=== PATIENT | female | born 1985 | race Caucasian/White ===

== ENCOUNTER 2021-10-10 16:58 | Emergency (ER) | payer OTHER, SELFPAY ==
[2021-10-10 17:04] VITALS: BP 149/94; PULSE 96; RESP 18; TEMP 36.9; O2SAT 97; BMI 30.1
[2021-10-10 18:30] LABS: MANUAL DIFF FLAG NO
[2021-10-10 18:31] LABS: Basophils Percent Auto 0.5 % (0-2); Eosinophils Absolute Auto 0.1 X10*3/uL (0.0-0.4); Eosinophils Percent Auto 1.3 % (0-4); Hematocrit 37.9 % (37.0-47.0); Hemoglobin 13.2 g/dl (12.0-16.0); Imm Gran Abs Auto 0.01 X10*3/uL (0.00-0.03); Imm Gran Pct Auto 0.2 % (0.0-0.4); Lymphocytes Absolute Auto 1.2 X10*3/uL (1.2-4.9); Lymphocytes Percent Auto 20.9 % (20-40); Mean Corpuscular HGB Conc 34.8 g/dl (31.0-35.0); Mean Corpuscular Hemoglobin 30.3 pg (27.0-33.0); Mean Corpuscular Volume 86.9 fL (80.0-98.0); Mean Platelet Volume 9.6 fL (9.4-12.3); Monocytes Absolute Auto 0.3 X10*3/uL (0.1-1.2); Neutrophils Absolute Auto 3.9 x10*3/uL (2.0-8.3); Neutrophils Percent Auto 71.1 % (45-73); Platelet Count 340 X10*3/uL (160-400); Red Blood Count 4.36 X10*6/uL (4.20-5.50); Red Cell Distribution Width 11.9 % (11.0-16.0); White Blood Count 5.5 X10*3/uL (4.8-10.8)
[2021-10-10 18:46] LABS: Anion Gap 15 (12-20); Blood Urea Nitrogen 12 mg/dL (9-16); Calcium 9.6 mg/dL (8.4-10.2); Carbon Dioxide 27 mmol/L (22-29); Chloride 103 mmol/L (96-108); Creatinine Clr Calc Pharmacy 78.7; Estimated Glomerular Filt Rate > 60; Glucose Random 101 mg/dL (60-115); Potassium 4.2 mmol/L (3.3-5.1); Sodium 141 mmol/L (135-145)
== END 2021-10-10 20:06 | disposition left against medical advice (07) ==
PROVIDERS: Emergency Provider Emergency Medicine
DX: K92.1 Melena (principal); K59.00 Constipation, unspecified; Z79.899 Other long term (current) drug therapy
CPT/HCPCS: 36415; 80048; 85025; 99281; 99283

== ENCOUNTER 2022-03-17 12:20 | Emergency (ER) | payer OTHER, SELFPAY ==
--- NOTE | ~2022-03-17 | US_ITS ---
EXAMINATION: US ABDOMEN COMPLETE CLINICAL INFORMATION: Epigastric pain, right flank pain. COMPARISON: None TECHNIQUE: Real-time imaging of the abdominal viscera. FINDINGS: PANCREAS: Normal. ABDOMINAL AORTA: The proximal, mid, and distal segments are normal in caliber. INFERIOR VENA CAVA: Visualized portions are normal. LIVER: Normal. The liver is normal in size. The liver contour is normal. Parenchymal echogenicity is normal. No focal hepatic lesion. There is no intrahepatic biliary duct dilatation seen. GALLBLADDER: Normal. The gallbladder is physiologically distended without evidence of stones, sludge, polyps, wall thickening or pericholecystic fluid. COMMON BILE DUCT: Normal in caliber measuring 0.6 cm in diameter. RIGHT KIDNEY: Normal. No hydronephrosis. No renal calculi or focal parenchymal lesions. The kidney measures 8.2 cm in maximum dimension. LEFT KIDNEY: Normal. No hydronephrosis. No renal calculi or focal parenchymal lesions. The kidney measures 44 cm in maximum dimension. SPLEEN: Normal. The spleen measures 10.0 cm in maximum dimension. FREE FLUID: None. US/US abdomen complete IMPRESSION: Unremarkable abdominal ultrasound.
--- NOTE | ~2022-03-17 | CT_ITS ---
EXAMINATION: CT ABDOMEN AND PELVIS WITH CONTRAST CLINICAL INFORMATION: Lower abdominal pain COMPARISON: Abdominal ultrasound from the same day TECHNIQUE: Multidetector volumetric images were obtained from the superior aspect of the liver through the pubic symphysis following administration 85 mL of Omnipaque 350 intravenous contrast. Sagittal and coronal reformatted images were obtained on the technologist's workstation. Oral contrast: No This CT examination was performed using dose optimization techniques as appropriate, variously including the following: *Automated exposure control *Adjustment of mA and/or kV according to patient size (this includes techniques or standardized protocols for targeted exams where dose is matched to indication/reason for exam; i.e. extremities or head) *Use of iterative reconstruction technique DLP: 644 mGy-cm FINDINGS: LUNG BASES: The visualized lung bases are unremarkable. LIVER, GALLBLADDER, AND BILIARY TREE: The liver is normal in size, shape, and attenuation. No focal hepatic lesion or biliary ductal dilatation is present. The gallbladder is unremarkable with no evidence of radiopaque gallstones, gallbladder wall thickening, or obvious pericholecystic inflammatory changes. PANCREAS: Unremarkable. SPLEEN: Unremarkable. ADRENAL GLANDS: Unremarkable. KIDNEYS AND URETERS: There is simple cyst in the upper pole of right kidney measured 1.7 x 2.2 x 1.6 cm BLADDER: Unremarkable. GASTROINTESTINAL TRACT: The small and large bowel are unremarkable. The appendix is unremarkable. Large amount of retained feces consistent with constipation. ABDOMINAL WALL: No significant hernia is appreciated. LYMPH NODES: Normal. VASCULAR: Unremarkable. PELVIC VISCERA: Unremarkable. OSSEOUS STRUCTURES: Unremarkable. CT/CT abdomen pelvis w IV con IMPRESSION: Constipation. Simple cyst in the right kidney. Fleischner guidelines were followed.
--- NOTE | 2022-03-17 12:44 | ED.ABDPAIN ---
HPI - Abdominal Pain General Chief Complaint: Nausea/Vomiting/Diarrhea <JEREMIE Shankar Last Filed: 03/17/22 12:49> Stated Complaint: vomiting, cant keep anything down. <JEREMIE Shankar Last Filed: 03/17/22 12:49> Time Seen by Provider: 03/17/22 15:31 <JEREMIE Shankar Last Filed: 03/17/22 12:49> Source: patient <JEREMIE Pollard Last Filed: 03/17/22 17:29> Mode of arrival: ambulatory <JEREMIE Pollard Last Filed: 03/17/22 17:29> Limitations: no limitations <JEREMIE Pollard Last Filed: 03/17/22 17:29> History of Present Illness HPI narrative: 36 year old female presents to the ED with nausea and vomiting that started yesterday at 7 pm. The patient is unable to tolerate PO since last night. Epigastric pain induced by vomiting. No Hematochezia. Denies changes to bowel movements, noted normal bowel movement this morning. Reports sweats and chills during vomiting. Today she noticed right sided flank pain, described as constant dull 3 out of 10 pain. States she was unable to sleep last night and is extremely tiered. She also reports having a tension headache, 7 out of 10 pain. Denies dysuria, hematuria, urgency and frequency. Just ended her menses. No recent travel or sick contacts. <JEREMIE Pollard Last Filed: 03/17/22 17:29> MD elicited complaint: flank pain (right ) <JEREMIE Pollard Last Filed: 03/17/22 17:29> Onset (ago): hour(s) <JEREMIE Pollard Last Filed: 03/17/22 17:29> Pain Consistency: constant <JEREMIE Pollard Last Filed: 03/17/22 17:29> Location: epigastric and R flank <JEREMIE Pollard Last Filed: 03/17/22 17:29> Severity: mild <JEREMIE Pollard Last Filed: 03/17/22 17:29> Pain scale (0-10): 4 <JEREMIE Pollard Last Filed: 03/17/22 17:29> Quality: dull <JEREMIE Pollard Last Filed: 03/17/22 17:29> Radiation: none <JEREMIE Pollard Last Filed: 03/17/22 17:29> Migration to: no migration <JEREMIE Pollard Last Filed: 03/17/22 17:29> Exacerbating factors: vomiting <JEREMIE Pollard Last Filed: 03/17/22 17:29> Associated symptoms: nausea and vomiting <JEREMIE Pollard Last Filed: 03/17/22 17:29> Related Data Home Medications: Previous Rx's Medication Instructions Recorded docusate sodium 100 mg capsule 100 mg PO BID PRN Constipation #14 03/17/22 (Colace) caps ketorolac 10 mg tablet 10 mg PO Q8H #14 tabs 03/17/22 ondansetron HCl 4 mg tablet 4 mg PO Q8H #14 tabs 03/17/22 polyethylene glycol 3350 17 17 g PO DAILY Constipation #119 03/17/22 gram/dose oral powder (Miralax) grams <JEREMIE Shankar Last Filed: 03/17/22 12:49> Allergies/Adverse Reactions: Allergies Allergy/AdvReac Type Severity Reaction Status Date / Time No Known Allergies Allergy Unverified 10/28/19 18:24 <JEREMIE Shankar Last Filed: 03/17/22 12:49> Review of Systems Review of Systems Constitutional : No Fever, + Chills with vomiting, + Sweats with vomiting, No Fatigue, No Malaise Cardiovascular : No Chest Pain, No SOB Respiratory : No Cough, No Sputum, No Wheezing, No Dyspnea Gastrointestinal : + Nausea, + Vomiting, No Diarrhea, No abdominal Pain, No Hematochezia, No Melena Genitourinary : No irregular bleeding, No Dysuria, No Urinary Frequency, No Hematuria,No Urinary Incontinence, No Urgency, No Flank Pain Musculoskeletal : No joint pain, No Myalgias, No Joint Swelling Skin : No Skin Lesions, No rash Neuro : No Weakness, No Numbness, No Paresthesias, No Loss of Consciousness, No Dizziness, No Headache Heme/Lymph: No Lymphadenopathy Endocrine : No Temperature Intolerance <JEREMIE Pollard Last Filed: 03/17/22 17:29> Yes all other systems are reviewed and are negative <JEREMIE Pollard - Last Filed: 03/17/22 17:29> FORMERLY [facility] Past Medical History Attestation statement: The following information was validated with the patient. <JEREMIE Pollard - Last Filed: 03/17/22 17:29> Source: old records reviewed and nursing notes reviewed <JEREMIE Pollard - Last Filed: 03/17/22 17:29> Social History Social History: Social History Advance Directives: No Advance Directives Information Provided: No <JEREMIE Shankar - Last Filed: 03/17/22 12:49> Physical Exam ED Vital Signs: Vital Signs - 24 hr 03/17/22 12:45 03/17/22 15:05 03/17/22 17:01 Temperature 98 F 98.7 F 98.6 F Pulse Rate 96 94 80 Respiratory Rate 16 16 19 Blood Pressure 119/78 116/75 96/57 L Pulse Oximetry 97 98 100 Oxygen Delivery Method Room Air Room Air Room Air BMI result Body Mass Index 30.9 <JEREMIE Shankar - Last Filed: 03/17/22 12:49> Vital Signs - 24 hr 03/17/22 12:45 03/17/22 15:05 03/17/22 17:01 Temperature 98 F 98.7 F 98.6 F Pulse Rate 96 94 80 Respiratory Rate 16 16 19 Blood Pressure 119/78 116/75 96/57 L Pulse Oximetry 97 98 100 Oxygen Delivery Method Room Air Room Air Room Air BMI result Body Mass Index 30.9 Vital signs have been reviewed and all within normal limits <JEREMIE Pollard - Last Filed: 03/17/22 17:29> Appearance: Alert. Oriented X3. No acute distress. Head: Normal external exam. Normocephalic. Eyes: PERRLA. EOMI. Conjunctiva and sclera normal. Eyelids normal. ENT: Pharynx normal. Uvula midline. Dry mucous membranes. No trismus noted. No drooling noted. No muffled voice noted. Neck: Normal inspection. Neck supple. FROM. No adenopathy. No meningeal signs. CVS: Normal heart rate and rhythm. Heart sound normal. No murmurs noted. Pulses normal throughout. Respiratory: No respiratory distress. Painless inspiration. Breath sounds normal. No wheezes/rales/rhonchi noted. Chest nontender. No accessory muscle usage noted or decreased air movement noted. Abdomen: Soft and nontender. Nondistended. No guarding. No rigidity. Bowel sounds normal in all 4 quadrants. No distention noted. No organomegaly noted. No visible injury noted. No rebound tenderness. Negative Rovsing sign. Negative obturator's sign. Negative psoas sign. Negative Shaffer sign. Back: + CVA tenderness right sided. Full range of motion noted. Skin: Skin warm and dry. Normal skin color. Normal skin turgor. No rashes/lesions/lacerations noted. Extremities: Extremities exhibit normal range of motion. Extremities nontender. Neuro: Oriented X 3. No motor deficit. No sensory deficit. Reflexes normal. Normal steady gait. CN's II-XII intact bilaterally? <JEREMIE Pollard - Last Filed: 03/17/22 17:29> Course Course Course Narrative: RME--36yo F c/o nausea, vomiting, and inability to tolerate PO since last night with assoc epigastric and R flank pain. Denies fever, chills Just ended last menses. R CVAT noted on exam, abdomen soft and nontender Labs, UA, IVF, Abd US complete, & ordered in triage <JEREMIE Shankar - Last Filed: 03/17/22 12:49> 36 year old female presents to the ED with nausea and vomiting that started yesterday at 7 pm. The patient is unable to tolerate PO since last night. Epigastric pain induced by vomiting. No Hematochezia. Denies changes to bowel movements, noted normal bowel movement this morning. Reports sweats and chills during vomiting. Today she noticed right sided flank pain, described as constant dull 3 out of 10 pain. States she was unable to sleep last night and is extremely tiered. She also reports having a tension headache, 7 out of 10 pain. Denies dysuria, hematuria, urgency and frequency. Just ended her menses. No recent travel or sick contacts. The patient is a 36 year old afebrile female with nausea and vomiting since yesterday evening unable to tolerate PO. The pt reports 3 out of 10 dull non-radiating right side flank pain and epigastric pain induced by vomiting. Physical exam remarkable for right sided CVA tenderness. Abdominal exam was unremarkable the abdomen is Soft and nontender. Nondistended. No guarding. No rigidity. Bowel sounds normal in all 4 quadrants. No distention noted. No organomegaly noted. No visible injury noted. No rebound tenderness. Negative Rovsing sign. Negative obturator's sign. Negative psoas sign. Negative Shaffer sign. Plan: Labs IVF Imaging Test <JEREMIE Pollard - Last Filed: 03/17/22 17:29> Reevaluation(s) Reevaluation #1: CBC: Neut% 86.8, Lymph% 6.3, Absolute Neuts 8.9 - all other lab values within normal limits BMP: Alk phos 38 - all other lab values within normal limits UA: Ur Specific [place] >=1.030, Urine Protein 30 (1+), Trace blood in urine, Urine RBC 6-10 Urine - Negative <JEREMIE Pollard - Last Filed: 03/17/22 17:29> Time: 15:19 <JEREMIE Pollard - Last Filed: 03/17/22 17:29> Reevaluation #2: Abdomen Ultrasound: FINDINGS: PANCREAS: Normal. ABDOMINAL AORTA: The proximal, mid, and distal segments are normal in caliber. INFERIOR VENA CAVA: Visualized portions are normal. LIVER: Normal. The liver is normal in size. The liver contour is normal. Parenchymal echogenicity is normal. No focal hepatic lesion. There is no intrahepatic biliary duct dilatation seen. GALLBLADDER: Normal. The gallbladder is physiologically distended without evidence of stones, sludge, polyps, wall thickening or pericholecystic fluid. COMMON BILE DUCT: Normal in caliber measuring 0.6 cm in diameter. RIGHT KIDNEY: Normal. No hydronephrosis. No renal calculi or focal parenchymal lesions. The kidney measures 8.2 cm in maximum dimension. LEFT KIDNEY: Normal. No hydronephrosis. No renal calculi or focal parenchymal lesions. The kidney measures 44 cm in maximum dimension. SPLEEN: Normal. The spleen measures 10.0 cm in maximum dimension. FREE FLUID: None. US/US abdomen complete IMPRESSION: Unremarkable abdominal ultrasound. ? <JEREMIE Pollard - Last Filed: 03/17/22 17:29> Time: 14:30 <JEREMIE Pollard - Last Filed: 03/17/22 17:29> Reevaluation #3: Abdomen/Pelvis CT: Revealed constipation in a simple cyst in the right kidney otherwise no other acute processes. Patient now tolerating p.o. fluids and solids. Therefore at this time patient will be discharged with nausea medication for possible gastroenteritis and Colace and MiraLax for constipation instructions return if any new or worsening symptoms to follow up with primary care provider. Patient understands agrees with this plan. <JEREMIE Pollard - Last Filed: 03/17/22 17:29> Time: 17:22 <JEREMIE Pollard - Last Filed: 03/17/22 17:29> Medical Decision Making Lab Data MDM Lab Attestation statement: I reviewed the patient's lab results. <JEREMIE Pollard - Last Filed: 03/17/22 17:29> Result Diagrams: 03/17/22 15:19 03/17/22 15:19 <JEREMIE Shankar - Last Filed: 03/17/22 12:49> Labs: Lab Results 03/17/22 03/17/22 03/17/22 Range/Units 15:19 15:19 15:19 WBC 10.3 (4.8-10.8) X10*3/uL RBC 4.31 (4.20-5.50) X10*6/uL Hgb 12.9 (12.0-16.0) g/dl Hct 37.3 (37.0-47.0) % MCV 86.5 (80.0-98.0) fL MCH 29.9 (27.0-33.0) pg MCHC 34.6 (31.0-35.0) g/dl RDW 11.9 (11.0-16.0) % Plt Count 287 (160-400) X10*3/uL MPV 10.3 (9.4-12.3) fL Immature Gran % (Auto) 0.3 (0.0-0.4) % Neut % (Auto) 86.8 H (45-73) % Lymph % (Auto) 6.3 L (20-40) % [place] % (Auto) 6.3 (2-11) % Eos % (Auto) 0.0 (0-4) % Baso % (Auto) 0.3 (0-2) % Lymph # (Auto) 0.7 L (1.2-4.9) X10*3/uL [place] # (Auto) 0.7 (0.1-1.2) X10*3/uL Eos # (Auto) 0.0 (0.0-0.4) X10*3/uL Baso # (Auto) 0.0 (0.0-0.2) X10*3/uL Abs Immat Gran (auto) 0.03 (0.00-0.03) X10*3/uL Absolute Neuts (auto) 8.9 H (2.0-8.3) x10*3/uL Absolute Nucleated RBC 0.000 (0.0-0.012) X10*3/uL Nucleated RBC % (auto) 0.0 (0.0-0.2) /100WBC Sodium 138 (135-145) mmol/L Potassium 4.6 (3.3-5.1) mmol/L Chloride 101 (96-108) mmol/L Carbon Dioxide 27 (22-29) mmol/L Anion Gap 15 (12-20) BUN 15 (9-16) mg/dL Creatinine 0.85 (0.5-1.4) mg/dL Estim Creat Clear Calc 91.2 Estimated GFR > 60 Random Glucose 104 (60-115) mg/dL Calcium 9.4 (8.4-10.2) mg/dL Magnesium 1.9 (1.6-2.6) mg/dL Total Bilirubin 0.7 (0.0-1.0) mg/dL Direct Bilirubin 0.2 (0.0-0.5) mg/dL AST 21 (5-31) U/L ALT 17 (0-31) U/L Alkaline Phosphatase 38 L (39-117) U/L Total Protein 7.1 (6.5-8.0) g/dL Albumin 4.1 (3.5-5.0) g/dL Lipase 9 (8-78) U/L Urine Color Yellow Urine Appearance Clear Urine pH 5.5 (5.0-9.0) Ur Specific [place] >= 1.030 H (1.005-1.025) Urine Protein 30 (1+) H (Neg-Trace) mg/dL Urine Glucose (UA) Negative (Negative) mg/dL Urine Ketones Negative (Negative) mg/dL Urine Blood Trace H (Negative) Urine Nitrite Negative (Negative) Ur Leukocyte Esterase Negative (Negative) Urine RBC 6-10 H (0-2) /HPF Urine WBC 0-5 (0-5) /HPF Ur Squamous Epith Cells 11-20 (0-2) /HPF Urine Bacteria 1+ (None Seen) Hyaline Casts 0-2 (0-2) /LPF Urine Test (NEGATIVE) Influenza Type A (PCR) (Negative) Influenza Type B (PCR) (Negative) RSV RNA Qual (PCR) (Negative) SARS-CoV-2 RNA (RT-PCR) (Negative) 03/17/22 03/17/22 Range/Units 15:19 16:21 WBC (4.8-10.8) X10*3/uL RBC (4.20-5.50) X10*6/uL Hgb (12.0-16.0) g/dl Hct (37.0-47.0) % MCV (80.0-98.0) fL MCH (27.0-33.0) pg MCHC (31.0-35.0) g/dl RDW (11.0-16.0) % Plt Count (160-400) X10*3/uL MPV (9.4-12.3) fL Immature Gran % (Auto) (0.0-0.4) % Neut % (Auto) (45-73) % Lymph % (Auto) (20-40) % [place] % (Auto) (2-11) % Eos % (Auto) (0-4) % Baso % (Auto) (0-2) % Lymph # (Auto) (1.2-4.9) X10*3/uL [place] # (Auto) (0.1-1.2) X10*3/uL Eos # (Auto) (0.0-0.4) X10*3/uL Baso # (Auto) (0.0-0.2) X10*3/uL Abs Immat Gran (auto) (0.00-0.03) X10*3/uL Absolute Neuts (auto) (2.0-8.3) x10*3/uL Absolute Nucleated RBC (0.0-0.012) X10*3/uL Nucleated RBC % (auto) (0.0-0.2) /100WBC Sodium (135-145) mmol/L Potassium (3.3-5.1) mmol/L Chloride (96-108) mmol/L Carbon Dioxide (22-29) mmol/L Anion Gap (12-20) BUN (9-16) mg/dL Creatinine (0.5-1.4) mg/dL Estim Creat Clear Calc Estimated GFR Random Glucose (60-115) mg/dL Calcium (8.4-10.2) mg/dL Magnesium (1.6-2.6) mg/dL Total Bilirubin (0.0-1.0) mg/dL Direct Bilirubin (0.0-0.5) mg/dL AST (5-31) U/L ALT (0-31) U/L Alkaline Phosphatase (39-117) U/L Total Protein (6.5-8.0) g/dL Albumin (3.5-5.0) g/dL Lipase (8-78) U/L Urine Color Urine Appearance Urine pH (5.0-9.0) Ur Specific [place] (1.005-1.025) Urine Protein (Neg-Trace) mg/dL Urine Glucose (UA) (Negative) mg/dL Urine Ketones (Negative) mg/dL Urine Blood (Negative) Urine Nitrite (Negative) Ur Leukocyte Esterase (Negative) Urine RBC (0-2) /HPF Urine WBC (0-5) /HPF Ur Squamous Epith Cells (0-2) /HPF Urine Bacteria (None Seen) Hyaline Casts (0-2) /LPF Urine Test NEGATIVE (NEGATIVE) Influenza Type A (PCR) NEGATIVE (Negative) Influenza Type B (PCR) NEGATIVE (Negative) RSV RNA Qual (PCR) NEGATIVE (Negative) SARS-CoV-2 RNA (RT-PCR) NEGATIVE (Negative) <JEREMIE Shankar - Last Filed: 03/17/22 12:49> Lab Results 03/17/22 03/17/22 03/17/22 Range/Units 15:19 15:19 15:19 WBC 10.3 (4.8-10.8) X10*3/uL RBC 4.31 (4.20-5.50) X10*6/uL Hgb 12.9 (12.0-16.0) g/dl Hct 37.3 (37.0-47.0) % MCV 86.5 (80.0-98.0) fL MCH 29.9 (27.0-33.0) pg MCHC 34.6 (31.0-35.0) g/dl RDW 11.9 (11.0-16.0) % Plt Count 287 (160-400) X10*3/uL MPV 10.3 (9.4-12.3) fL Immature Gran % (Auto) 0.3 (0.0-0.4) % Neut % (Auto) 86.8 H (45-73) % Lymph % (Auto) 6.3 L (20-40) % [place] % (Auto) 6.3 (2-11) % Eos % (Auto) 0.0 (0-4) % Baso % (Auto) 0.3 (0-2) % Lymph # (Auto) 0.7 L (1.2-4.9) X10*3/uL [place] # (Auto) 0.7 (0.1-1.2) X10*3/uL Eos # (Auto) 0.0 (0.0-0.4) X10*3/uL Baso # (Auto) 0.0 (0.0-0.2) X10*3/uL Abs Immat Gran (auto) 0.03 (0.00-0.03) X10*3/uL Absolute Neuts (auto) 8.9 H (2.0-8.3) x10*3/uL Absolute Nucleated RBC 0.000 (0.0-0.012) X10*3/uL Nucleated RBC % (auto) 0.0 (0.0-0.2) /100WBC Sodium 138 (135-145) mmol/L Potassium 4.6 (3.3-5.1) mmol/L Chloride 101 (96-108) mmol/L Carbon Dioxide 27 (22-29) mmol/L Anion Gap 15 (12-20) BUN 15 (9-16) mg/dL Creatinine 0.85 (0.5-1.4) mg/dL Estim Creat Clear Calc 91.2 Estimated GFR > 60 Random Glucose 104 (60-115) mg/dL Calcium 9.4 (8.4-10.2) mg/dL Magnesium 1.9 (1.6-2.6) mg/dL Total Bilirubin 0.7 (0.0-1.0) mg/dL Direct Bilirubin 0.2 (0.0-0.5) mg/dL AST 21 (5-31) U/L ALT 17 (0-31) U/L Alkaline Phosphatase 38 L (39-117) U/L Total Protein 7.1 (6.5-8.0) g/dL Albumin 4.1 (3.5-5.0) g/dL Lipase 9 (8-78) U/L Urine Color Yellow Urine Appearance Clear Urine pH 5.5 (5.0-9.0) Ur Specific [place] >= 1.030 H (1.005-1.025) Urine Protein 30 (1+) H (Neg-Trace) mg/dL Urine Glucose (UA) Negative (Negative) mg/dL Urine Ketones Negative (Negative) mg/dL Urine Blood Trace H (Negative) Urine Nitrite Negative (Negative) Ur Leukocyte Esterase Negative (Negative) Urine RBC 6-10 H (0-2) /HPF Urine WBC 0-5 (0-5) /HPF Ur Squamous Epith Cells 11-20 (0-2) /HPF Urine Bacteria 1+ (None Seen) Hyaline Casts 0-2 (0-2) /LPF Urine Test (NEGATIVE) Influenza Type A (PCR) (Negative) Influenza Type B (PCR) (Negative) RSV RNA Qual (PCR) (Negative) SARS-CoV-2 RNA (RT-PCR) (Negative) 03/17/22 03/17/22 Range/Units 15:19 16:21 WBC (4.8-10.8) X10*3/uL RBC (4.20-5.50) X10*6/uL Hgb (12.0-16.0) g/dl Hct (37.0-47.0) % MCV (80.0-98.0) fL MCH (27.0-33.0) pg MCHC (31.0-35.0) g/dl RDW (11.0-16.0) % Plt Count (160-400) X10*3/uL MPV (9.4-12.3) fL Immature Gran % (Auto) (0.0-0.4) % Neut % (Auto) (45-73) % Lymph % (Auto) (20-40) % [place] % (Auto) (2-11) % Eos % (Auto) (0-4) % Baso % (Auto) (0-2) % Lymph # (Auto) (1.2-4.9) X10*3/uL [place] # (Auto) (0.1-1.2) X10*3/uL Eos # (Auto) (0.0-0.4) X10*3/uL Baso # (Auto) (0.0-0.2) X10*3/uL Abs Immat Gran (auto) (0.00-0.03) X10*3/uL Absolute Neuts (auto) (2.0-8.3) x10*3/uL Absolute Nucleated RBC (0.0-0.012) X10*3/uL Nucleated RBC % (auto) (0.0-0.2) /100WBC Sodium (135-145) mmol/L Potassium (3.3-5.1) mmol/L Chloride (96-108) mmol/L Carbon Dioxide (22-29) mmol/L Anion Gap (12-20) BUN (9-16) mg/dL Creatinine (0.5-1.4) mg/dL Estim Creat Clear Calc Estimated GFR Random Glucose (60-115) mg/dL Calcium (8.4-10.2) mg/dL Magnesium (1.6-2.6) mg/dL Total Bilirubin (0.0-1.0) mg/dL Direct Bilirubin (0.0-0.5) mg/dL AST (5-31) U/L ALT (0-31) U/L Alkaline Phosphatase (39-117) U/L Total Protein (6.5-8.0) g/dL Albumin (3.5-5.0) g/dL Lipase (8-78) U/L Urine Color Urine Appearance Urine pH (5.0-9.0) Ur Specific [place] (1.005-1.025) Urine Protein (Neg-Trace) mg/dL Urine Glucose (UA) (Negative) mg/dL Urine Ketones (Negative) mg/dL Urine Blood (Negative) Urine Nitrite (Negative) Ur Leukocyte Esterase (Negative) Urine RBC (0-2) /HPF Urine WBC (0-5) /HPF Ur Squamous Epith Cells (0-2) /HPF Urine Bacteria (None Seen) Hyaline Casts (0-2) /LPF Urine Test NEGATIVE (NEGATIVE) Influenza Type A (PCR) NEGATIVE (Negative) Influenza Type B (PCR) NEGATIVE (Negative) RSV RNA Qual (PCR) NEGATIVE (Negative) SARS-CoV-2 RNA (RT-PCR) NEGATIVE (Negative) <JEREMIE Pollard - Last Filed: 03/17/22 17:29> Independent Interpretation I performed an independent interpretation of an: Ultrasound and CT Scan <JEREMIE Pollard - Last Filed: 03/17/22 17:29> Radiology Impression Discussion of test interpretation with radiology: I have reviewed the radiologist's reading. <JEREMIE Pollard - Last Filed: 03/17/22 17:29> Radiologist Impression: FINDINGS: PANCREAS: Normal. ABDOMINAL AORTA: The proximal, mid, and distal segments are normal in caliber. INFERIOR VENA CAVA: Visualized portions are normal. LIVER: Normal. The liver is normal in size. The liver contour is normal. Parenchymal echogenicity is normal. No focal hepatic lesion. There is no intrahepatic biliary duct dilatation seen. GALLBLADDER: Normal. The gallbladder is physiologically distended without evidence of stones, sludge, polyps, wall thickening or pericholecystic fluid. COMMON BILE DUCT: Normal in caliber measuring 0.6 cm in diameter. RIGHT KIDNEY: Normal. No hydronephrosis. No renal calculi or focal parenchymal lesions. The kidney measures 8.2 cm in maximum dimension. LEFT KIDNEY: Normal. No hydronephrosis. No renal calculi or focal parenchymal lesions. The kidney measures 44 cm in maximum dimension. SPLEEN: Normal. The spleen measures 10.0 cm in maximum dimension. FREE FLUID: None. US/US abdomen complete IMPRESSION: Unremarkable abdominal ultrasound. ? FINDINGS: LUNG BASES: The visualized lung bases are unremarkable.? LIVER, GALLBLADDER, AND BILIARY TREE: The liver is normal in size, shape, and attenuation. No focal hepatic lesion or biliary ductal dilatation is present. The gallbladder is unremarkable with no evidence of radiopaque gallstones, gallbladder wall thickening, or obvious pericholecystic inflammatory changes.? PANCREAS: Unremarkable.? SPLEEN: Unremarkable.? ADRENAL GLANDS: Unremarkable.? KIDNEYS AND URETERS: There is simple cyst in the upper pole of right kidney measured 1.7 x 2.2 x 1.6 cm? BLADDER: Unremarkable.? GASTROINTESTINAL TRACT: The small and large bowel are unremarkable. The appendix is unremarkable. Large amount of retained feces consistent with constipation. ABDOMINAL WALL: No significant hernia is appreciated.? LYMPH NODES: Normal. VASCULAR: Unremarkable. PELVIC VISCERA: Unremarkable.? OSSEOUS STRUCTURES: Unremarkable.? CT/CT abdomen pelvis w IV con IMPRESSION: Constipation. Simple cyst in the right kidney. ? Fleischner guidelines were followed. <JEREMIE Pollard - Last Filed: 03/17/22 17:29> Prescription Management I considered prescription management with: Pain Medication <JEREMIE Pollard - Last Filed: 03/17/22 17:29> Medications Administered Generic Name Dose Route Start Last Admin Trade Name Freq PRN Reason Stop Dose Admin Sodium Chloride 1,000 mls @ 999 mls/hr 03/17/22 17:15 03/17/22 17:18 Ns IVCONT 03/17/22 18:15 999 mls/hr .Q1H1M NELSON Administration Discontinued Medications Generic Name Dose Route Start Last Admin Trade Name Freq PRN Reason Stop Dose Admin Acetaminophen 975 mg 03/17/22 16:34 03/17/22 17:07 Acetaminophen 325 Mg Tablet PO 03/17/22 16:35 975 mg ONCE ONE Administration Sodium Chloride 1,000 mls @ 999 mls/hr 03/17/22 12:45 03/17/22 17:08 Ns IV 03/17/22 13:45 Infused .Q1H1M NELSON Infusion Iohexol 100 ml 03/17/22 16:05 03/17/22 16:06 Iohexol 350 Mg/Ml 100 Ml Infus..Btl IV 03/17/22 16:06 85 ml ONCE ONE Administration Ketorolac Tromethamine 30 mg 03/17/22 15:52 03/17/22 16:29 Ketorolac Tromethamine 30 Mg/Ml Vial IVPUSH 03/17/22 15:53 30 mg ONCE ONE Administration Ondansetron HCl 4 mg 03/17/22 15:52 03/17/22 16:29 Ondansetron Hcl 4 Mg/2 Ml Vial IVPUSH 03/17/22 15:53 4 mg ONCE ONE Administration <JEREMIE Shankar - Last Filed: 03/17/22 12:49> Medications Administered Generic Name Dose Route Start Last Admin Trade Name Freq PRN Reason Stop Dose Admin Sodium Chloride 1,000 mls @ 999 mls/hr 03/17/22 17:15 03/17/22 17:18 Ns IVCONT 03/17/22 18:15 999 mls/hr .Q1H1M NELSON Administration Discontinued Medications Generic Name Dose Route Start Last Admin Trade Name Freq PRN Reason Stop Dose Admin Acetaminophen 975 mg 03/17/22 16:34 03/17/22 17:07 Acetaminophen 325 Mg Tablet PO 03/17/22 16:35 975 mg ONCE ONE Administration Sodium Chloride 1,000 mls @ 999 mls/hr 03/17/22 12:45 03/17/22 17:08 Ns IV 03/17/22 13:45 Infused .Q1H1M NELSON Infusion Iohexol 100 ml 03/17/22 16:05 03/17/22 16:06 Iohexol 350 Mg/Ml 100 Ml Infus..Btl IV 03/17/22 16:06 85 ml ONCE ONE Administration Ketorolac Tromethamine 30 mg 03/17/22 15:52 03/17/22 16:29 Ketorolac Tromethamine 30 Mg/Ml Vial IVPUSH 03/17/22 15:53 30 mg ONCE ONE Administration Ondansetron HCl 4 mg 03/17/22 15:52 03/17/22 16:29 Ondansetron Hcl 4 Mg/2 Ml Vial IVPUSH 03/17/22 15:53 4 mg ONCE ONE Administration <JEREMIE Pollard - Last Filed: 03/17/22 17:29> Discharge Plan Discharge Clinical Impression: Gastroenteritis, Constipation, Cyst of right kidney <JEREMIE Shankar - Last Filed: 03/17/22 12:49> Patient Disposition: Home, Self-Care <JEREMIE Shankar - Last Filed: 03/17/22 12:49> Instructions: Constipation (ED), Gastroenteritis (ED), Kidney Cyst (ED) <JEREMIE Shankar - Last Filed: 03/17/22 12:49> Prescriptions: New ondansetron HCl 4 mg tablet 4 mg PO Q8H Qty: 14 0RF ketorolac 10 mg tablet 10 mg PO Q8H Qty: 14 0RF Rx Instructions: First dose given in the ER by IV patient tolerated well docusate sodium [Colace] 100 mg capsule 100 mg PO BID PRN (Reason: Constipation) Qty: 14 0RF polyethylene glycol 3350 [Miralax] 17 gram/dose powder 17 g PO DAILY Qty: 119 0RF <JEREMIE Shankar - Last Filed: 03/17/22 12:49> Referrals: Fabien Madrid MD [Primary Care Provider] - 2 days <JEERMIE Shankar - Last Filed: 03/17/22 12:49> Stand Alone Forms: Work/School Release <JEREMIE Shankar - Last Filed: 03/17/22 12:49>
[2022-03-17 12:45] VITALS: BP 119/78; PULSE 96; RESP 16; TEMP 36.6; O2SAT 97; BMI 30.9
[2022-03-17 15:05] VITALS: BP 116/75; PULSE 94; RESP 16; TEMP 37.1; O2SAT 98
[2022-03-17 15:25] LABS: MANUAL DIFF FLAG NO
[2022-03-17 15:26] LABS: Basophils Percent Auto 0.3 % (0-2); Hematocrit 37.3 % (37.0-47.0); Hemoglobin 12.9 g/dl (12.0-16.0); Imm Gran Abs Auto 0.03 X10*3/uL (0.00-0.03); Imm Gran Pct Auto 0.3 % (0.0-0.4); Lymphocytes Absolute Auto 0.7 X10*3/uL (1.2-4.9); Lymphocytes Percent Auto 6.3 % (20-40); Mean Corpuscular HGB Conc 34.6 g/dl (31.0-35.0); Mean Corpuscular Hemoglobin 29.9 pg (27.0-33.0); Mean Corpuscular Volume 86.5 fL (80.0-98.0); Mean Platelet Volume 10.3 fL (9.4-12.3); Monocytes Absolute Auto 0.7 X10*3/uL (0.1-1.2); Monocytes Percent Auto 6.3 % (2-11); Neutrophils Absolute Auto 8.9 x10*3/uL (2.0-8.3); Neutrophils Percent Auto 86.8 % (45-73); Platelet Count 287 X10*3/uL (160-400); Red Blood Count 4.31 X10*6/uL (4.20-5.50); Red Cell Distribution Width 11.9 % (11.0-16.0); White Blood Count 10.3 X10*3/uL (4.8-10.8)
[2022-03-17] MEDS: 0.9 % Sodium Chloride 1,000 ML 999 ML IV (15:26)
[2022-03-17 15:29] LABS: Appearance Urine Clear; Color Urine Yellow; Glucose Urine UA Negative (Negative); Leukocyte Esterase Urine Negative (Negative); Nitrite Urine Negative (Negative); PH 5.5 (5.0-9.0); Specific Gravity - Urine >= 1.030 (1.005-1.025); UMIC TRIGGER UACC YES; Urine Blood Trace (Negative); Urine Ketones Negative (Negative); Urine Protein 30 (1+) mg/dL (Neg-Trace)
[2022-03-17 15:31] LABS: Bacteria Urine 1+ (None Seen); Hyaline Casts Urine 0-2 /LPF (0-2); WBC Urine 0-5 /HPF (0-5)
[2022-03-17 15:33] LABS: UPreg QC Valid YES; Urine Pregnancy NEGATIVE (NEGATIVE)
[2022-03-17 15:44] LABS: Alanine Aminotransferase 17 U/L (0-31); Albumin Level 4.1 g/dL (3.5-5.0); Alkaline Phosphatase 38 U/L (39-117); Anion Gap 15 (12-20); Aspartate Amino Transferase 21 U/L (5-31); Bilirubin Direct 0.2 mg/dL (0.0-0.5); Bilirubin Total 0.7 mg/dL (0.0-1.0); Blood Urea Nitrogen 15 mg/dL (9-16); Calcium 9.4 mg/dL (8.4-10.2); Carbon Dioxide 27 mmol/L (22-29); Chloride 101 mmol/L (96-108); Creatinine Clr Calc Pharmacy 91.2; Estimated Glomerular Filt Rate > 60; Glucose Random 104 mg/dL (60-115); Lipase 9 U/L (8-78); Magnesium 1.9 mg/dL (1.6-2.6); Potassium 4.6 mmol/L (3.3-5.1); Sodium 138 mmol/L (135-145); Total Protein 7.1 g/dL (6.5-8.0)
[2022-03-17] MEDS: iohexoL 350 MG/ML 100 ML INFUS..BTL IV (16:06)
[2022-03-17] MEDS: Ketorolac Tromethamine 30 MG/ML VIAL IVPUSH (16:29)
[2022-03-17] MEDS: ondansetron HCL 4 MG/2 ML VIAL IVPUSH (16:29)
[2022-03-17 17:01] VITALS: BP 96/57; PULSE 80; RESP 19; TEMP 37; O2SAT 100
[2022-03-17 17:04] LABS: Influenza A PCR NEGATIVE (Negative); Influenza B PCR NEGATIVE (Negative); Resp Syncy Virus RNA Qual PCR NEGATIVE (Negative); SARS COV2 PCR INHOUSE NEGATIVE (Negative)
[2022-03-17] MEDS: Acetaminophen 325 MG TABLET 975 MG PO (17:07)
[2022-03-17] MEDS: 0.9 % Sodium Chloride 1,000 ML 999 ML IVCONT (17:18)
== END 2022-03-17 17:57 | disposition home or self-care (01) ==
PROVIDERS: Physician Assistant; Physician Assistant Medical; Emergency Provider Student in an Organized Health Care Education/Training Program; PCP Hospitalist
DX: K52.9 Noninfective gastroenteritis and colitis, unspecified (principal); K59.00 Constipation, unspecified; N28.1 Cyst of kidney, acquired; R10.13 Epigastric pain; R11.10 Vomiting, unspecified; Z20.828 Contact with and (suspected) exposure to other viral communicable diseases; Z20.822 Contact with and (suspected) exposure to COVID-19; Z79.899 Other long term (current) drug therapy
CPT/HCPCS: 0241U; 36415; 74177; 76700; 80048; 80076; 81001; 81025; 83690; 83735; 85025; 96361; 96374; 96375; 99284; J1885; J2405; Q9967